=== PATIENT | male | born 2005 | race Caucasian/White ===

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

== ENCOUNTER 2024-04-17 15:30 | Outpatient (RCR) | payer OTHER, SELFPAY ==
--- NOTE | 2024-01-15 13:51 | HP.PTEVAL ---
Patient's Visit Information Visit Information Visit Information: CLAUDE WISDOM is a 18 year old M referred to Physical Therapy by ABISAI MOBLEY with a diagnosis of R hybrid UCL reconstruction 01.05.24. 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 who was referred to our care by Dr Mobley at [facility] in [place] following a right UCL hybrid reconstruction on January 04. Claude states he was pitching in October when he felt a pop in his elbow and the following outing he had significantly decreased velocity. He is accompanied by his father today. He is scheduled to followup with Dr Francis to have his sutures removed from his wrist and elbow on January 15. Pain Right Elbow: Pain Intensity (Out of 10): 1 Pain Intensity Range: 1 and 5 Comment: Stopped taking pain meds Objective Objective: Claude presents today with his sling locked at 60 of flexion. His incision site is healing well with no seepage or drainage. He denies and fever of chills and his pain is controlled. His sensation was intact over the 4&5th digit with a normal monofilament. Girth measurements indicate that he has about 1/2 swelling from R vs L at the elbow. His ROM is 90 Flexion with soft end feel and -20 extension. Pronation is WFLs supination is -5. No difficulties with wrist flexion and extension. 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 Balance/Special Test Scores Quick DASH Score: 77.2725 Goals Goal 1:: Understand the healing process and time frame to RTP. Goal Time Frame: 1 Week Goal 2:: Return Demo HEP and brace locking Goal Time Frame: 1 Week Goal 3:: Start the gradual ROM, Strengthening program as per protocol. Goal Time Frame: 12-16 Weeks Goal 4:: Touch base with [facility] [employer] [facility] staff prior to return to school Rehabilitation Potential Physical Therapy Diagnosis: R Hybrid UCL reconstruction Rehabilitation Potential: Excellent Anticipated Interventions Patient/Client Instruction: Educate patient on: Condition, Plan of Care and Risk Factors For the Purpose of:: To decrease pain, To increase ROM, To assume or resume ADL's and To prevent re-injury Therapeutic Exercise to Include: Strength training, Endurance training, Flexibilty training and Active ROM For the Purpose of:: To increase ROM, To assume or resume ADL's and To prevent re-injury Functional Training to Include: Functional sports training For the Purpose of:: To decrease pain, To increase ROM and To increase tolerance to activity/condition/position Manual Therapy Techniques to Include: Trigger point massage, Massage, Mobilization and Passive ROM For the Purpose of:: To increase ROM, To improve performance and independence with ADL's and To assume or resume ADL's Functional electric stimulation: Yes Cryotherapy (ice pack, ice massage): Yes Vasopneumatic device: Yes For the Purpose of:: To decrease pain, To decrease swelling/inflammation, To improve performance and independence with ADL's and To assume or resume ADL's Text: Thank you for the opportunity to evaluate your patient. For Medicare and Medicare HMO plans, please review the plan of care and approve it. It will need to be FAXED BACK to us at [phone] for Medicare purposes. For Medicare only, by signing this I certify the plan of care. Please let me know if there are questions or concerns regarding this plan of care. Physician Signature: Date:
--- NOTE | 2024-01-15 13:54 | HP.PTEVAL ---
Patient's Visit Information Visit Information Visit Information: CLAUDE WISDOM is a 18 year old M referred to Physical Therapy by ABISAI MOBLEY with a diagnosis of R hybrid UCL reconstruction 01.05.24. 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 Claude states he was pitching in October when he felt a pop in his elbow and the following outing he had significantly decreased velocity. He is accompanied by his father today. He is scheduled to followup with Dr Francis to have his sutures removed from his wrist and elbow on January 15. Pain Right Elbow: Pain Intensity (Out of 10): 1 Pain Intensity Range: 1 and 5 Comment: Stopped taking pain meds Objective Objective: Claude presents today with his sling locked at 60 of flexion. His incision site is healing well with no seepage or drainage. He denies and fever of chills and his pain is controlled. His sensation was intact over the 4&5th digit with a normal monofilament. Girth measurements indicate that he has about 1/2 swelling from R vs L at the elbow. His ROM is 90 Flexion with soft end feel and -20 extension. Pronation is WFLs supination is -5. No difficulties with wrist flexion and extension. 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 Balance/Special Test Scores Quick DASH Score: 77.2725 Goals Goal 1:: Understand the healing process and time frame to RTP. Goal Time Frame: 1 Week Goal 2:: Return Demo HEP and brace locking Goal Time Frame: 1 Week Goal 3:: Start the gradual ROM, Strengthening program as per protocol. Goal Time Frame: 12-16 Weeks Goal 4:: Touch base with [employer] [facility] staff prior to return to school Rehabilitation Potential Physical Therapy Diagnosis: R Hybrid UCL reconstruction Rehabilitation Potential: Excellent Anticipated Interventions Patient/Client Instruction: Educate patient on: Condition, Plan of Care and Risk Factors For the Purpose of:: To decrease pain, To increase ROM, To assume or resume ADL's and To prevent re-injury Therapeutic Exercise to Include: Strength training, Endurance training, Flexibilty training and Active ROM For the Purpose of:: To increase ROM, To assume or resume ADL's and To prevent re-injury Functional Training to Include: Functional sports training For the Purpose of:: To decrease pain, To increase ROM and To increase tolerance to activity/condition/position Manual Therapy Techniques to Include: Trigger point massage, Massage, Mobilization and Passive ROM For the Purpose of:: To increase ROM, To improve performance and independence with ADL's and To assume or resume ADL's Functional electric stimulation: Yes Cryotherapy (ice pack, ice massage): Yes Vasopneumatic device: Yes For the Purpose of:: To decrease pain, To decrease swelling/inflammation, To improve performance and independence with ADL's and To assume or resume ADL's Text: Thank you for the opportunity to evaluate your patient. For Medicare and Medicare HMO plans, please review the plan of care and approve it. It will need to be FAXED BACK to us at [phone] for Medicare purposes. For Medicare only, by signing this I certify the plan of care. Please let me know if there are questions or concerns regarding this plan of care. Physician Signature: Date:
--- NOTE | 2024-04-17 16:25 | HP.PTDCSUM ---
Discharge Summary D/C summary: It has been my pleasure to treat CLAUDE WISDOM referred by ABISAI MOBLEY, with the diagnosis of R hybrid UCL reconstruction 01.05.24 for a total of 24 visit(s). Discharge Date: 04/17/24 Please see the following information for a summary of their discharge status. Subjective Subjective: Claude is heading back to college on Monday. I have reached out to to the Head ATC and baseball ATC and will send him Dr Graves protocol and what routine he has been doing the last several weeks Pain Right Elbow: Pain Intensity (Out of 10): 0 Overall Improvement % Improvement: 75 Objective Objective/Function: ROM WFLS at side ext rot 90 B. I was surprised that at 90/90 position he didn't not have more ext. rotation on his dominant R pitching arm. MMT Biceps 53 R 43 L Triceps 40 R 40 L Ext Rot 33 R 35 L Int Rot 52 R 46 L Goals Goal 1:: Understand the healing process and time frame to RTP. Goal Progress: Goal Met Goal 2:: Return Demo HEP and brace locking Goal Progress: Goal Met Goal 3:: Start the gradual ROM, Strengthening program as per protocol. Goal Progress: Goal Met Goal 4:: Touch base with [facility] staff prior to return to school Plan Plan: Re-assess next visit. Progress note to surgeon, ATC at [facility]. D/C Information Discharge Comments: Claude scheduled to follow up with Dr Mobley on Jun 12 d/c sentence: If there are questions or concerns regarding this patient's physical therapy, please feel free to call me at [phone]. Thank you for the referral of this patient. Sincerely, Keith Saini, PT, AL, SCS, CSCS Balance/Gait/Functional tests Balance/Special Test Scores Quick DASH Score: 77.2725 Improvement % Improvement: 75
== END 2024-04-17 19:00 | disposition home or self-care (01) ==
LOC: PT 15:30
PROVIDERS: PCP Family Medicine
DX: Z98.890 Other specified postprocedural states (principal)
CPT/HCPCS: 97016; 97110; 97140; 97161; 97530